=== PATIENT | male | born 1985 | race Caucasian/White ===

== ENCOUNTER 2023-09-08 18:16 | Inpatient (IN) | payer SELFPAY ==
[2023-09-08] MEDS ORDERED: Sodium Chloride 0.9% 10 ML Syringe FLUSH PRN (19:04)
[2023-09-08] MEDS ORDERED: Ondansetron 4 MG/2 ML SDV IVPUSH ONE (19:10)
[2023-09-08] MEDS ORDERED: LORazepam 2 MG/ML SDV IVPUSH ONE (19:11)
[2023-09-08] MEDS ORDERED: Sodium Chloride 0.9% 1,000 ML IV SCH (19:15)
[2023-09-08 19:16] LABS: BASOPHILS ABSOLUTE AUTO 0.04 K/uL (0.00-0.10); BASOPHILS PERCENT AUTO 0.2 % (0.1-1.3); HEMATOCRIT 43.4 % (38.4-49.7); HEMOGLOBIN 15.1 g/dL (12.9-16.9); IMMATURE GRAN ABSOLUTE AUTO 0.07 K/uL (0.00-0.23); IMMATURE GRAN PERCENT AUTO 0.4 % (0.0-0.7); LYMPHOCYTES ABSOLUTE AUTO 0.85 K/uL (0.8-3.3); MEAN CORPUSCULAR HEMOGLOBIN 27.6 pg (31.6-35.5); MEAN CORPUSCULAR HGB CONC 34.8 g/dL (31.6-35.5); MEAN CORPUSCULAR VOLUME 79.2 fL (81.4-99.0); MONOCYTES ABSOLUTE AUTO 1.34 K/uL (0.20-0.90); MONOCYTES PERCENT AUTO 7.9 % (3.3-12.6); NEUTROPHILS ABSOLUTE AUTO 14.65 K/uL (1.0-7.6); NEUTROPHILS PERCENT AUTO 86.5 % (40.0-78.1); PLATELET COUNT,PLT 259 K/uL (130-375); RED BLOOD CELL COUNT 5.48 M/uL (4.14-5.76)
[2023-09-08] MEDS ORDERED: cefTRIAXone 2 GM in Sodium Chloride 0.9% 50 ML IV ONE (19:18)
[2023-09-08] MEDS ORDERED: Ketorolac 30 MG/ML SDV IVPUSH ONE (19:30)
[2023-09-08 19:37] LABS: ALANINE AMINOTRANSFERASE,ALT 40 U/L (12-78); ALBUMIN 4.1 g/dL (3.4-5.0); ALKALINE PHOSPHATASE 79 U/L (46-116); ANION GAP 17.2 mmol/L (5.0-14.0); ASPARTATE AMNIOTRANSFERASE,AST 27 U/L (15-37); BILIRUBIN TOTAL 0.8 mg/dL (0.2-1.0); BLOOD UREA NITROGEN,BUN 12 mg/dL (7-18); C-REACTIVE PROTEIN 1.98 mg/dL (0.0-0.3); CALCIUM 8.9 mg/dL (8.5-10.1); CARBON DIOXIDE,CO2 24 mmol/L (21-32); CHLORIDE,CL 100 mmol/L (100-108); CREATININE 0.9 mg/dL (0.8-1.3); EST CRCL DRUG DOSING (CG) 123.35 mL/min; ESTIMATED GFR 113 mL/min (>60); GLUCOSE RANDOM 147 mg/dL (74-106); POTASSIUM,K 3.2 mmol/L (3.6-5.2); PROTEIN TOTAL,TP 8.2 g/dL (6.4-8.2); SODIUM,NA 138 mmol/L (140-148)
[2023-09-08 19:54] LABS: CORONAVIRUS COVID-19 NAA NEGATIVE (NEGATIVE); INFLUENZA A NAA NEGATIVE (NEGATIVE); INFLUENZA B NAA NEGATIVE (NEGATIVE); RESPIRATORY SYNCYTIAL VIR NAA NEGATIVE (NEGATIVE)
[2023-09-08 19:56] LABS: LACTIC ACID 2.1 mmol/L (0.4-2.0)
[2023-09-08 20:01] LABS: STREP A BY PCR DETECTED (NOT DETECT)
[2023-09-08] MEDS ORDERED: Ondansetron 4 MG/2 ML SDV ONE (21:30)
[2023-09-08] MEDS ORDERED: Potassium Chloride 20 MEQ in Premix Bag 1 BAG IV ONE (21:38)
[2023-09-08] MEDS ORDERED: Enoxaparin 40 MG/0.4 ML Syringe SUBCUT SCH (22:55)
[2023-09-08] MEDS ORDERED: LORazepam 2 MG/ML SDV IV PRN (22:55)
[2023-09-08] MEDS ORDERED: Albuterol 0.083% 2.5 MG/3 ML Neb Soln NEB PRN (22:55)
[2023-09-08] MEDS ORDERED: Morphine 2 MG/ML SYRINGE IVPUSH PRN (22:55)
[2023-09-08] MEDS ORDERED: Bisacodyl 5 MG Tab PO PRN (22:55)
[2023-09-08] MEDS ORDERED: Ondansetron 4 MG Tab.DIS PO PRN (22:55)
[2023-09-08] MEDS ORDERED: Docusate Sodium 100 MG Cap PO PRN (22:55)
[2023-09-08] MEDS ORDERED: Scopolamine 1.5 MG Transdermal Patch TRDERM ONE (23:15)
[2023-09-08] MEDS: Acetaminophen 325 MG Tab PO PRN (23:16)
[2023-09-09] MEDS: Potassium Chloride 10 MEQ in Premix Bag 1 BAG IV SCH ×2 (00:01→01:19)
[2023-09-09] MEDS: oxyCODONE 5 MG Tab PO PRN ×3 (00:02→21:40)
[2023-09-09] MEDS: Promethazine 25 MG Tab PO PRN ×3 (00:25→14:24)
[2023-09-09] MEDS: Pantoprazole 40 MG Vial IV SCH ×3 (00:25→21:39)
[2023-09-09] MEDS: Ondansetron 4 MG/2 ML SDV IV PRN ×2 (04:24→13:30)
[2023-09-09] MEDS: Sodium Chloride 0.9% 1,000 ML IV SCH ×2 (04:29→19:54)
[2023-09-09 05:40] LABS: BASOPHILS PERCENT AUTO 0.2 % (0.1-1.3); HEMATOCRIT 41.4 % (38.4-49.7); HEMOGLOBIN 14.2 g/dL (12.9-16.9); IMMATURE GRAN ABSOLUTE AUTO 0.04 K/uL (0.00-0.23); IMMATURE GRAN PERCENT AUTO 0.3 % (0.0-0.7); LYMPHOCYTES ABSOLUTE AUTO 0.89 K/uL (0.8-3.3); LYMPHOCYTES PERCENT AUTO 7.2 % (11.4-47.7); MEAN CORPUSCULAR HEMOGLOBIN 27.6 pg (31.6-35.5); MEAN CORPUSCULAR HGB CONC 34.3 g/dL (31.6-35.5); MEAN CORPUSCULAR VOLUME 80.5 fL (81.4-99.0); MONOCYTES ABSOLUTE AUTO 1.15 K/uL (0.20-0.90); MONOCYTES PERCENT AUTO 9.4 % (3.3-12.6); NEUTROPHILS ABSOLUTE AUTO 10.19 K/uL (1.0-7.6); NEUTROPHILS PERCENT AUTO 82.9 % (40.0-78.1); PLATELET COUNT,PLT 213 K/uL (130-375); RED BLOOD CELL COUNT 5.14 M/uL (4.14-5.76); WHITE BLOOD CELL COUNT,WBC 12.3 K/uL (3.2-11.0)
[2023-09-09 05:46] LABS: BASOPHILS ABSOLUTE AUTO 0.02 K/uL (0.00-0.10)
[2023-09-09 05:54] LABS: CALCIUM 8.2 mg/dL (8.5-10.1); CREATININE 0.8 mg/dL (0.8-1.3); EST CRCL DRUG DOSING (CG) 138.76 mL/min
[2023-09-09] MEDS: cefTRIAXone 2 GM in Sodium Chloride 0.9% 50 ML IV SCH ×2 (06:19→16:59)
[2023-09-09] MEDS: Acetaminophen 325 MG Tab PO PRN ×2 (08:01→16:57)
[2023-09-09] MEDS ORDERED: CHECK SCOPOLAMINE PATCH SCH (09:00)
[2023-09-09] MEDS ORDERED: Meclizine 25 MG Tab PO PRN (15:47)
[2023-09-09] MEDS ORDERED: Melatonin 3 MG Tab PO SCH (21:00)
[2023-09-10] MEDS: oxyCODONE 5 MG Tab PO PRN (01:22)
[2023-09-10] MEDS: Sodium Chloride 0.9% 1,000 ML IV SCH (03:54)
[2023-09-10] MEDS: cefTRIAXone 2 GM in Sodium Chloride 0.9% 50 ML IV SCH (06:16)
[2023-09-10] MEDS: Acetaminophen 325 MG Tab PO PRN (08:14)
[2023-09-10] MEDS: Pantoprazole 40 MG Vial IV SCH (08:33)
[2023-09-11] MEDS ORDERED: Scopolamine 1.5 MG Transdermal Patch TRDERM SCH (21:00)
== END 2023-09-10 11:03 | disposition home or self-care (01) | DRG 872 ==
LOC: JP.ED 18:16 → JP.MS 21:52
PROVIDERS: ADMIT Nurse Practitioner; ATTEND Internal Medicine
DX: A40.8 Other streptococcal sepsis (principal); H66.92 Otitis media, unspecified, left ear; R42 Dizziness and giddiness; J02.0 Streptococcal pharyngitis; H72.92 Unspecified perforation of tympanic membrane, left ear; E87.6 Hypokalemia; Z11.52 Encounter for screening for COVID-19; Z79.899 Other long term (current) drug therapy
CPT/HCPCS: 0241U; 36415; 80048; 80053; 83605; 84145; 85025; 86140; 87040; 87651-QW; 95992-GP; 96365; 96375; 97112-GP; 97161-GP; 99222; 99232; 99238; 99285; 99285-25; A9270-GY; C9113; J0696; J1885; J2060; J2270; J2405; J3480; J3490; J7030

== ENCOUNTER 2023-09-12 10:39 | Emergency (ER) | payer SELFPAY ==
[2023-09-12 11:39] LABS: BASOPHILS ABSOLUTE AUTO 0.03 K/uL (0.00-0.10); BASOPHILS PERCENT AUTO 0.4 % (0.1-1.3); EOSINOPHILS ABSOLUTE AUTO 0.03 K/uL (0.00-0.40); EOSINOPHILS PERCENT AUTO 0.4 % (0.0-5.4); HEMATOCRIT 44.2 % (38.4-49.7); HEMOGLOBIN 15.4 g/dL (12.9-16.9); IMMATURE GRAN ABSOLUTE AUTO 0.06 K/uL (0.00-0.23); IMMATURE GRAN PERCENT AUTO 0.9 % (0.0-0.7); LYMPHOCYTES ABSOLUTE AUTO 1.08 K/uL (0.8-3.3); LYMPHOCYTES PERCENT AUTO 15.4 % (11.4-47.7); MEAN CORPUSCULAR HEMOGLOBIN 27.4 pg (31.6-35.5); MEAN CORPUSCULAR HGB CONC 34.8 g/dL (31.6-35.5); MEAN CORPUSCULAR VOLUME 78.6 fL (81.4-99.0); MONOCYTES ABSOLUTE AUTO 0.53 K/uL (0.20-0.90); MONOCYTES PERCENT AUTO 7.6 % (3.3-12.6); NEUTROPHILS ABSOLUTE AUTO 5.28 K/uL (1.0-7.6); NEUTROPHILS PERCENT AUTO 75.3 % (40.0-78.1); PLATELET COUNT,PLT 267 K/uL (130-375); RED BLOOD CELL COUNT 5.62 M/uL (4.14-5.76)
[2023-09-12 11:54] LABS: ANION GAP 15.8 mmol/L (5.0-14.0); CALCIUM 9.1 mg/dL (8.5-10.1); CREATININE 0.9 mg/dL (0.8-1.3); EST CRCL DRUG DOSING (CG) 122.57 mL/min; POTASSIUM,K 3.8 mmol/L (3.6-5.2)
== END 2023-09-12 12:09 | disposition home or self-care (01) ==
LOC: JP.ED 10:39
DX: R42 Dizziness and giddiness (principal); R11.2 Nausea with vomiting, unspecified
CPT/HCPCS: 36415; 80048; 85025; 99283; 99284